=== PATIENT | male | born 1965 | race Caucasian/White ===

== ENCOUNTER 2018-12-17 15:59 | Emergency (ER) | payer OTHER, MEDICAID, SELFPAY ==
[2018-12-17] VITALS (7 sets, daily range): BP systolic 121–153; BP diastolic 70–97; PULSE 67–104; RESP 13–18; TEMP 37; O2SAT 95–100; BMI 34.9
--- NOTE | 2018-12-17 16:07 | DI.RAD.S_ITS ---
PROCEDURE: XR CHEST 1V INDICATIONS: chest pain TECHNIQUE: One view of the chest was acquired. COMPARISON: [facility], , CHEST 2 VIEW, 05/17/2008, 16:20. FINDINGS: Surgical changes and devices: None. Lungs and pleura: An incomplete inspiratory result is noted, causing a crowded appearance to the lung markings. No focal infiltrates are seen. No pneumothorax or significant pleural effusions are seen. Mediastinum: Mediastinal contours appear normal. Heart size is normal. Bones and chest wall: No suspicious bony lesions. Degenerative changes are seen, which are most prominent involving the right acromioclavicular joint. Overlying soft tissues appear unremarkable. IMPRESSION: Portable chest within normal limits. Dictated by: Ilya Saravia M.D. on 12/17/2018 at 16:15 Approved by: Ilya Saravia M.D. on 12/17/2018 at 16:16
[2018-12-17 16:46] LABS: Add Manual Diff / Slide Review NO; Basophils Absolute Auto 100 /uL (0-100); Basophils Percent Auto 1.2 % (0-2); Eosinophils Absolute Auto 100 /uL (0-450); Eosinophils Percent Auto 1.7 % (2-4); Hematocrit 41.3 % (41-53); Hemoglobin 14.1 g/dL (13.5-17.5); Lymphocytes Absolute Auto 2200 /uL (1100-4500); Mean Corpuscular HGB Conc 34.2 % (30-36); Mean Corpuscular Hemoglobin 29.7 PG (26-34); Mean Corpuscular Volume 86.8 fL (80-100); Monocytes Absolute Auto 500 /uL (0-900); Monocytes Percent Auto 6.8 % (3-14); Neutrophils Absolute Auto 4000 /uL (1500-7000); Neutrophils Percent Auto 58.3 % (50-75); Platelet Count 251 X10^3/uL (150-400); Red Blood Cell Count 4.76 X10^6/uL (4.5-5.9); Red Cell Distribution Width 15.5 % (11.6-14.8); White Blood Cell Count 6.9 X10^3/uL (4.5-11.0)
[2018-12-17 16:59] LABS: INR 0.9 (0.9-1.3); Prothrombin Time 10.3 SECONDS (10.1-12.7)
[2018-12-17 17:01] LABS: PTT Partial Thromboplastin Tim 32 SECONDS (26.4-36.2)
[2018-12-17 17:04] LABS: Alanine Aminotransferase 7 IU/L (21-72); Albumin 4.3 g/dL (3.5-5.0); Albumin Globulin Ratio 1.3 (1.0-2.8); Alkaline Phosphatase 112 U/L (38-126); Aspartate Aminotransferase 16 IU/L (17-59); BUN Creatinine Ratio 22.5 (6-22); Bilirubin Total 0.4 mg/dL (0.2-1.3); Blood Urea Nitrogen 18 mg/dL (9-20); Calcium 9.5 mg/dL (8.4-10.2); Carbon Dioxide 24 mmol/L (22-32); Chloride 103 mmol/L (98-107); Creatine Kinase 54 U/L (55-170); Estimated Glomerular Filt Rate > 60.0 mL/min (>60); Globulin 3.4 g/dL (1.7-4.1); Glucose 299 mg/dL (70-100); HEMOLYSIS < 15 (0-50); Potassium 3.7 mmol/L (3.4-5.1); Sodium 140 mmol/L (137-145); Total Protein 7.7 g/dL (6.3-8.2)
[2018-12-17 17:06] LABS: Lipase < 10 U/L (23-300)
[2018-12-17 17:15] LABS: Troponin I < 0.012 ng/mL (0.01-0.034)
--- NOTE | 2018-12-17 17:18 | DI.CT.S_ITS ---
PROCEDURE: CT HEAD/BRAIN WO CON INDICATIONS: Numbness and Left sided weakness TECHNIQUE: Noncontrast 4.5 mm thick angled axial sections acquired from the foramen magnum to the vertex, with coronal and sagittal reformats. For radiation dose reduction, the following was used: automated exposure control, adjustment of mA and/or kV according to patient size. COMPARISON: [facility], CR, XR CHEST 1V, 12/17/2018, 16:28. FINDINGS: Image quality: Excellent. CSF spaces: Basal cisterns are patent. No extra-axial fluid collections. Ventricles are normal in size and shape. Brain: No midline shift. No intracranial masses or hemorrhage. Vaca-white matter interface is normal. Skull and face: Calvarium and visualized facial bones are intact, without suspicious lesions. Sinuses: Visualized sinuses and mastoids are clear. IMPRESSION: No acute intracranial hemorrhage can be seen. No shannon CT findings of early stroke can be seen. If there is strong clinical suspicion for an acute stroke, please consider an MRI for further evaluation, as it is more sensitive (assuming that there is no contraindication to MRI). Dictated by: Ilya Saravia M.D. on 12/17/2018 at 17:00 Approved by: Ilya Saravia M.D. on 12/17/2018 at 17:01
[2018-12-17] MEDS: KETOROLAC 60 MG/2 ML VIAL 15 MG IV (18:00)
[2018-12-17] MEDS: HYDROMORPHONE 1 MG INJ IV (18:00)
[2018-12-17] MEDS: LORazepam 2 MG/ML INJ 0.5 MG IV (18:00)
[2018-12-17] MEDS: MORPHINE 4 MG/ML INJ IV (18:53)
--- NOTE | 2018-12-20 07:38 | ED_ITS ---
HPI - Chest Pain General Chief Complaint: Chest Pain Stated Complaint: worn out, chest and back pain Time Seen by Provider: 12/17/18 16:38 Source: patient Mode of arrival: ambulatory Limitations: no limitations History of Present Illness HPI narrative: Patient comes emergency department complaining of back spasms. Patient states he has had chest pain on and off chronically, and sees cardiology for this. He does have a history of coronary artery disease, and was just admitted at [facility] a couple of days ago after a syncopal episode. He was worked up, and workup was negative. Patient states that he has been feeling tired before they syncopal episode and ever since his hospitalization for, and has been sleeping more than usual. However, the patient states that today, he was riding in the car when he began to feel a spasm in his back. Patient states that he hoped it would go away on its own, but that it continued, and he decided to come to the emergency department. Patient denies new chest pain with the incident. No shortness of breath. Patient states that he has a bad headache since the onset of spasms. No other complaints at this time. Patient states the pain is 8/10, and nothing makes it better or worse. Related Data Home Medications Medication Instructions Recorded Confirmed allopurinol 300 mg PO DAILY 12/17/18 12/17/18 aspirin 81 mg PO DAILY 12/17/18 12/17/18 atorvastatin 10 mg PO DAILY 12/17/18 12/17/18 carisoprodol 350 mg PO TID PRN 12/17/18 12/17/18 clopidogrel 75 mg PO DAILY 12/17/18 12/17/18 doxazosin 4 mg PO BID 12/17/18 12/17/18 duloxetine 30 mg PO BID 12/17/18 12/17/18 finasteride 5 mg PO DAILY 12/17/18 12/17/18 furosemide 40 mg PO DAILY 12/17/18 12/17/18 gabapentin 900 - 1,200 mg PO TID 12/17/18 12/17/18 isosorbide mononitrate 30 mg PO DAILY 12/17/18 12/17/18 liraglutide [Victoza 2-Juan Ramon] 1.2 mg SUBCUT DAILY 12/17/18 12/17/18 methocarbamol 500 mg PO QID PRN 12/17/18 12/17/18 oxycodone 5 mg PO Q6H PRN 12/17/18 12/17/18 pantoprazole 40 mg PO DAILY 12/17/18 12/17/18 potassium chloride 20 meq PO DAILY 12/17/18 12/17/18 tamsulosin 0.8 mg PO DAILY 12/17/18 12/17/18 Allergies Allergy/AdvReac Type Severity Reaction Status Date / Time No Known Drug Allergies Allergy Verified 12/17/18 16:01 Review of Systems Constitutional Denies chills, Denies fever(s), Denies lethargy and Denies weakness Comments: Tightness Eyes Denies change in vision, Denies eye discharge, Denies irritation and Denies loss of vision ENT Ears, Nose, Mouth, and Throat: Denies change in voice, Denies neck pain and Denies sore throat Comments: Headache Cardiovascular Denies chest pain, Denies irregular heart rhythm, Denies lightheadedness, Denies palpitations, Denies dyspnea, Denies dyspnea on exertion and Denies orthopnea Respiratory Denies cough, Denies dyspnea, Denies dyspnea on exertion and Denies wheezing Gastrointestinal Gastrointestinal: Denies abdominal pain, Denies change in bowel habits, Denies diarrhea, Denies nausea and Denies vomiting Genitourinary Denies hematuria, Denies flank pain, Denies urinary incontinence and Denies urinary urgency Musculoskeletal Reports back pain and Denies neck pain Integumentary/Breasts Denies pruritus, Denies erythema, Denies rash and Denies wounds Neurologic Denies confusion, Denies loss of vision and Denies weakness Psychiatric Denies anxiety, Denies confusion, Denies depression, Denies homicidal ideation and Denies suicidal ideation Endocrine Denies palpitations Hematologic/Lymphatic Denies easy bruising Allergic/Immunologic Denies wheezing PFSH Social History Smoking Status: Current every day smoker Social History Smoking Status: Current every day smoker Exam Initial Vital Signs Initial Vital Signs: Vital Signs Temperature 98.6 F 12/17/18 16:01 Pulse Rate 104 H 12/17/18 16:01 Respiratory Rate 16 12/17/18 16:01 Blood Pressure 121/70 12/17/18 16:01 Pulse Oximetry 97 12/17/18 16:01 Const General: cooperative and well developed Nutritional Appearance: well nourished Orientation: alert, awake, oriented x3 and not confused Other: The patient is well appearing in the emergency department. [facility] Head: normocephalic and atraumatic Ears: external ears normal Nose: external nose normal and No nasal discharge Face and sinus: face symmetric and No dry mucous membranes Mouth: oral mucosae normal and moist mucous membranes Teeth and gingiva: dentition normal Eyes General: appearance normal, both eyes and all related structures Eyelids: eyelids normal Conjunctivae: conjunctivae normal Sclera: sclerae normal Pupils: PERRL EOM: EOM intact bilaterally Neck Neck: normal visual inspection, trachea midline, No lymphadenopathy, No midline deformity and No JVD Lymphatic: No lymphedema Chest Chest: normal inspection of the chest Resp Effort & Inspection: normal respiratory effort, able to speak in complete sentences, no respiratory distress and no use of accessory muscles Auscultation: clear to auscultation bilaterally, no rales, no rhonchi and no wheezes Cardio Rate: regular rate Rhythm: regular rhythm Heart Sounds: no click, no gallops, no murmurs and no rubs Pulses: normal peripheral pulses GI Inspection: non-distended Palpation: soft, no hepatosplenomegaly, No guarding, No pulsatile mass and No tender Auscultation: normal bowel sounds Back/Spine/Pelvis Back: No CVA tenderness Cervical Spine: cervical ROM normal and No pain with cervical ROM Thoracic/Lumbar Spine: thoracic and lumbar spine normal to inspection Skin General: no rashes or lesions noted, No jaundice and No petechiae Neuro General: alert, oriented x3, gait normal and no focal motor deficits Speech: speech normal Extrem General: full ROM, no clubbing, cyanosis or edema, no pedal edema and no calf tenderness Psych Appearance: well kempt Mental Status: mental status grossly normal Attitude: cooperative Thought Content: normal and suicidality Judgment: judgment good Course Course Narrative: The patient was worked up with labs, EKG, chest x-ray, and head CT, all of which were unremarkable. Patient was treated symptomatically, and found to be feeling better. We discussed home management of symptoms, as well as usual indications for return. No emergent condition has been identified today. Orders Ordered: Discontinued Medications Hydromorphone HCl (Dilaudid) 1 mg IV NOW ONE Stop: 12/17/18 17:44 Last Admin: 12/17/18 18:00 Dose: 1 mg Ketorolac Tromethamine (Toradol) 15 mg IV NOW ONE Stop: 12/17/18 17:44 Last Admin: 12/17/18 18:00 Dose: 15 mg Lorazepam (Ativan) 0.5 mg IV NOW ONE Stop: 12/17/18 17:44 Last Admin: 12/17/18 18:00 Dose: 0.5 mg Morphine Sulfate (Morphine) 4 mg IV NOW ONE Stop: 12/17/18 18:46 Last Admin: 12/17/18 18:53 Dose: 4 mg Vital Signs - 8 hr 12/17/18 16:01 12/17/18 16:30 12/17/18 17:06 Temperature 98.6 F Pulse Rate 104 H 93 H 96 H Respiratory Rate 16 18 Blood Pressure 121/70 Blood Pressure [Left Arm] 129/83 121/73 Pulse Oximetry 97 95 MDM - Chest Pain Medical Records Data Attestation: I reviewed the patient's medical records. Lab Data Attestation: I reviewed the patient's lab results. Result diagrams: 12/17/18 16:35 12/17/18 16:35 Lab Results 12/17/18 12/17/18 12/17/18 Range/Units 16:35 16:35 16:35 WBC 6.9 (4.5-11.0) X10^3/uL RBC 4.76 (4.5-5.9) X10^6/uL Hgb 14.1 (13.5-17.5) g/dL Hct 41.3 (41-53) % MCV 86.8 (80-100) fL MCH 29.7 (26-34) PG MCHC 34.2 (30-36) % RDW 15.5 H (11.6-14.8) % Plt Count 251 (150-400) X10^3/uL Neut % (Auto) 58.3 (50-75) % Lymph % (Auto) 32.0 (25-40) % Phillips % (Auto) 6.8 (3-14) % Eos % (Auto) 1.7 L (2-4) % Baso % (Auto) 1.2 (0-2) % Neut # (Auto) 4000 (8373-0665) /uL Lymph # (Auto) 2200 (2173-7059) /uL Phillips # (Auto) 500 (0-900) /uL Eos # (Auto) 100 (0-450) /uL Baso # (Auto) 100 (0-100) /uL PT 10.3 (10.1-12.7) SECONDS INR 0.9 (0.9-1.3) APTT 32 (26.4-36.2) SECONDS Sodium 140 (137-145) mmol/L Potassium 3.7 (3.4-5.1) mmol/L Chloride 103 (98-107) mmol/L Carbon Dioxide 24 (22-32) mmol/L BUN 18 (9-20) mg/dL Creatinine 0.80 (0.66-1.25) mg/dL Estimated GFR > 60.0 (>60) mL/min BUN/Creatinine Ratio 22.5 H (6-22) Glucose 299 H (70-100) mg/dL Calcium 9.5 (8.4-10.2) mg/dL Total Bilirubin 0.4 (0.2-1.3) mg/dL AST 16 L (17-59) IU/L ALT 7 L (21-72) IU/L Alkaline Phosphatase 112 (38-126) U/L Total Creatine Kinase 54 L (55-170) U/L CK-MB (CK-2) TNP CK-MB (CK-2) Rel Index TNP Troponin I < 0.012 (0.01-0.034) ng/mL Total Protein 7.7 (6.3-8.2) g/dL Albumin 4.3 (3.5-5.0) g/dL Globulin 3.4 (1.7-4.1) g/dL Albumin/Globulin Ratio 1.3 (1.0-2.8) Lipase < 10 L (23-300) U/L Imaging Data Chest x-ray: Radiologist's impression: EDURE: XR CHEST 1V INDICATIONS: chest pain TECHNIQUE: One view of the chest was acquired. COMPARISON: [facility], , CHEST 2 VIEW, 05/17/2008, 16:20. FINDINGS: Surgical changes and devices: None. Lungs and pleura: An incomplete inspiratory result is noted, causing a crowded appearance to the lung markings. No focal infiltrates are seen. No pneumothorax or significant pleural effusions are seen. Mediastinum: Mediastinal contours appear normal. Heart size is normal. Bones and chest wall: No suspicious bony lesions. Degenerative changes are seen, which are most prominent involving the right acromioclavicular joint. Overlying soft tissues appear unremarkable. IMPRESSION: Portable chest within normal limits. Dictated by: Ilya Saravia M.D. on 12/17/2018 at 16:15 Approved by: Ilya Saravia M.D. on 12/17/2018 at 16:16 CT scan - head: Radiologist's impression: PROCEDURE: CT HEAD/BRAIN WO CON INDICATIONS: Numbness and Left sided weakness TECHNIQUE: Noncontrast 4.5 mm thick angled axial sections acquired from the foramen magnum to the vertex, with coronal and sagittal reformats. For radiation dose reduction, the following was used: automated exposure control, adjustment of mA and/or kV according to patient size. COMPARISON: [facility], , XR CHEST 1V, 12/17/2018, 16:28. FINDINGS: Image quality: Excellent. CSF spaces: Basal cisterns are patent. No extra-axial fluid collections. Ventricles are normal in size and shape. Brain: No midline shift. No intracranial masses or hemorrhage. Vaca-white matter interface is normal. Skull and face: Calvarium and visualized facial bones are intact, without suspicious lesions. Sinuses: Visualized sinuses and mastoids are clear. IMPRESSION: No acute intracranial hemorrhage can be seen. No shannon CT findings of early stroke can be seen. If there is strong clinical suspicion for an acute stroke, please consider an MRI for further evaluation, as it is more sensitive (assuming that there is no contraindication to MRI). Dictated by: Ilya Saravia M.D. on 12/17/2018 at 17:00 Approved by: Ilya Saravia M.D. on 12/17/2018 at 17:01 ECG Data Attestation: I personally reviewed and interpreted this ECG as follows: (See below) Interpretation: Twelve lead EKG performed December 17, 2018 at 4:11 p.m., as follows: Regular ventricular rhythm with a rate of 99 beats per minute MD interval 155 millisecond QRS duration 87 millisecond QTC interval [address] T wave changes No ectopy Interpretation: Normal sinus rhythm; nonspecific T-wave abnormalities; no signs of acute ischemia; borderline EKG as interpreted by EDMD. Discharge Plan Departure Patient Disposition: Home Clinical Impression: Generalized weakness Back pain Qualifiers: Back pain location: thoracic back pain Chronicity: acute Back pain laterality: bilateral Qualified Code(s): M54.6 - Pain in thoracic spine Discharge Date/Time: 12/17/18 19:18 Interventions: ED Discharge Assessment Last Done: 12/17/18 19:16 Instructions: DI for Muscle Weakness, DI for Thoracic Back Pain Prescriptions: No Action carisoprodol 350 mg tablet 350 mg PO TID PRN (Reason: Muscle Spasm) RF: 0 methocarbamol 500 mg tablet 500 mg PO QID PRN (Reason: Muscle Spasm) RF: 0 atorvastatin 10 mg tablet 10 mg PO DAILY RF: 0 isosorbide mononitrate 30 mg tablet extended release 24 hr 30 mg PO DAILY RF: 0 clopidogrel 75 mg tablet 75 mg PO DAILY RF: 0 aspirin 81 mg tablet,delayed release (DR/EC) 81 mg PO DAILY RF: 0 potassium chloride 20 mEq tablet,ER particles/crystals 20 meq PO DAILY RF: 0 tamsulosin 0.4 mg capsule 0.8 mg PO DAILY RF: 0 pantoprazole 40 mg tablet,delayed release (DR/EC) 40 mg PO DAILY RF: 0 gabapentin 300 mg capsule 900 - 1,200 mg PO TID RF: 0 doxazosin 4 mg tablet 4 mg PO BID RF: 0 allopurinol 300 mg tablet 300 mg PO DAILY RF: 0 furosemide 20 mg tablet 40 mg PO DAILY RF: 0 finasteride 5 mg tablet 5 mg PO DAILY RF: 0 oxycodone 5 mg tablet 5 mg PO Q6H PRN (Reason: Pain, Moderate) RF: 0 duloxetine 30 mg capsule,delayed release(DR/EC) 30 mg PO BID RF: 0 Victoza 2-Juan Ramon 0.6 mg/0.1 mL (18 mg/3 mL) pen injector 1.2 mg subcut DAILY RF: 0 Referrals: Faisal Anderson MD [Physician] -
== END 2018-12-17 19:18 | disposition home or self-care (01) ==
PROVIDERS: Emergency Provider Emergency Medicine
DX: R53.1 Weakness (principal); M54.6 Pain in thoracic spine; R07.9 Chest pain, unspecified
CPT/HCPCS: 36591; 70450; 71045; 80053; 82550; 83690; 84484; 85025; 85610; 85730; 93005; 96374; 96375; 99283; 99285; J1170; J1885; J2060; J2270